=== PATIENT | male | born 1990 | race Caucasian/White ===

== ENCOUNTER → 2021-05-01 | Outpatient (CLI) | payer BC, OTHER ==
[2021-05-01 09:59] LABS: CREATINE KINASE MB 1.5 NG/ML (<6.6)
== END ==
LOC: LAB 09:17
PROVIDERS: ATTEND Nurse Practitioner Family
DX: R06.02 Shortness of breath (principal); R00.2 Palpitations
CPT/HCPCS: 36415; 82553; 83874; 84484

== ENCOUNTER → 2021-07-02 | Outpatient (CLI) | payer OTHER ==
--- NOTE | 2021-07-02 14:05 | Diagnostic Imaging Report ---
INDICATION: Left flank pain x 2 days. EXAMINATION: KUB at 1:56 PM. FINDINGS: There are three calcifications in the left side of the pelvis. Each of these measures approximately 3 mm in diameter. Any of these could be ureteral calculi versus phleboliths. IMPRESSION: Calcifications in the pelvis could be ureteral calculi versus phleboliths. Dictated by: Dictated on workstation # [id number]
== END ==
LOC: RAD 13:35
PROVIDERS: ATTEND Physician Assistant
DX: N28.89 Other specified disorders of kidney and ureter (principal); R10.9 Unspecified abdominal pain
CPT/HCPCS: 74018